=== PATIENT | female | born 1975 | race Caucasian/White ===

== ENCOUNTER → 2017-01-15 | Outpatient (CLI) | payer MEDICARE ==
[2017-01-15 14:51] LABS: Basophils # (auto) 0 uL; Basophils % (auto) 0.7 % (0.0-2.0); Eosinophils # (auto) 0.1 uL; Eosinophils % (auto) 1.9 % (0.0-7.0); Hematocrit 39.1 % (36.0-46.0); Hemoglobin 13.5 g/dL (12.2-16.2); Lymphocytes # (auto) 2.2 uL; Lymphocytes % (auto) 34.8 % (10.0-50.0); Mean Corpuscular Hemoglobin 30.1 pg (28.0-32.0); Mean Corpuscular Hgb Conc. 34.6 g/dL (32.0-36.0); Mean Corpuscular Volume 87.1 fL (80.0-100.0); Mean Platelet Volume 7.8 fL (6.9-10.8); Monocytes # (auto) 0.5 uL; Monocytes % (auto) 8.1 % (0.0-12.0); Neutrophils # (auto) 3.5 uL; Neutrophils % (auto) 54.5 % (37.0-80.0); Platelet Count (auto) 225 10^3/uL (140-450); Red Cell Distribution Width 13.7 % (11.8-14.3); White Blood Cell 6.4 10^3/uL (4.4-10.8)
[2017-01-15 15:06] LABS: Albumin 3.7 g/dL (3.4-5.0); Bilirubin, Total 0.4 mg/dL (0.2-1.0); Calcium 8.5 mg/dL (8.5-10.1); Potassium 3.8 mmol/L (3.5-5.1)
[2017-01-15 15:41] LABS: Urine Bilirubin Negative (Negative); Urine Blood Negative /uL (Negative); Urine Color Yellow (Yellow); Urine Glucose Normal (Normal); Urine Ketone Negative (Negative); Urine Mucus FEW (None Seen); Urine Nitrite Negative (Negative); Urine RBC 4 /hpf (0 - 4); Urine Squamous Epithelial Cell FEW /hpf (<5); Urine Urobilinogen Normal (Negative); Urine pH 5.5 (5.0-8.0)
== END | disposition home or self-care (01) ==
LOC: LAB 13:56
PROVIDERS: ATTEND Internal Medicine
DX: I10 Essential (primary) hypertension (principal); E55.9 Vitamin D deficiency, unspecified; E78.2 Mixed hyperlipidemia
CPT/HCPCS: 36415; 80053; 80061; 81001; 82306; 84443; 85025

== ENCOUNTER → 2017-08-31 | Outpatient (CLI) | payer MEDICARE ==
[2017-08-31 12:25] LABS: Basophils # (auto) 0 uL; Basophils % (auto) 0.7 % (0.0-2.0); Eosinophils # (auto) 0.1 uL; Eosinophils % (auto) 2.1 % (0.0-7.0); Hematocrit 39.8 % (36.0-46.0); Hemoglobin 13.6 g/dL (12.2-16.2); Lymphocytes # (auto) 1.5 uL; Lymphocytes % (auto) 31.6 % (10.0-50.0); Mean Corpuscular Hemoglobin 29.1 pg (28.0-32.0); Mean Corpuscular Hgb Conc. 34.2 g/dL (32.0-36.0); Mean Corpuscular Volume 85.3 fL (80.0-100.0); Monocytes # (auto) 0.4 uL; Monocytes % (auto) 8.6 % (0.0-12.0); Neutrophils # (auto) 2.7 uL; Nucleated Red Blood Cells % 0.1 %; Platelet Count (auto) 212 10^3/uL (140-450); Red Blood Cells 4.67 10^6/uL (4.0-5.20); Red Cell Distribution Width 13.6 % (11.8-14.3); White Blood Cell 4.7 10^3/uL (4.4-10.8)
[2017-08-31 13:41] LABS: Albumin 3.5 g/dL (3.4-5.0); Bilirubin, Total 0.6 mg/dL (0.2-1.0); Calcium 8.4 mg/dL (8.5-10.1); Total Protein 7.6 g/dL (6.4-8.2)
== END | disposition home or self-care (01) ==
LOC: LAB 12:07
PROVIDERS: ATTEND Physician Assistant
DX: I10 Essential (primary) hypertension (principal); N92.1 Excessive and frequent menstruation with irregular cycle; H90.5 Unspecified sensorineural hearing loss; E78.5 Hyperlipidemia, unspecified; R79.89 Other specified abnormal findings of blood chemistry; Z83.3 Family history of diabetes mellitus
CPT/HCPCS: 36415; 80053; 80061; 83036; 85025

== ENCOUNTER → 2017-10-12 | Outpatient (CLI) | payer MEDICARE, MEDICAID | END | disposition home or self-care (01) | LOC: XY 09:41 | PROVIDERS: ATTEND Physician Assistant | DX: I10 Essential (primary) hypertension (principal); E78.5 Hyperlipidemia, unspecified | CPT/HCPCS: 93886 ==

== ENCOUNTER → 2017-12-24 | Outpatient (CLI) | payer MEDICARE, MEDICAID ==
[2017-12-24 14:06] LABS: Hepatitis A Ab IgM Negative; Hepatitis B Core IgM Negative; Hepatitis B Surface Antigen Negative (Negative); Hepatitis C Antibody Negative (Negative)
== END | disposition home or self-care (01) ==
LOC: LAB 11:57
PROVIDERS: ATTEND Specialist
DX: Z11.3 Encounter for screening for infections with a predominantly sexual mode of transmission (principal); Z20.2 Contact with and (suspected) exposure to infections with a predominantly sexual mode of transmission
CPT/HCPCS: 36415; 80074; 86703

== ENCOUNTER 2017-12-29 22:40 | Emergency (ER) | payer MEDICARE, MEDICAID ==
[~2017-12-29] VITALS: Ht 152.4 cm; Wt 77.1 kg
[2017-12-29 22:52] VITALS: BP 138/82
[2017-12-29 23:18] LABS: Urine Amorphous Crystal FEW /hpf (None Seen); Urine Bacteria MOD /hpf (None Seen); Urine Blood TRACE /uL (Negative); Urine Hyaline Cast MANY /lpf (0 - 2); Urine Mucus FEW (None Seen); Urine Specific Gravity 1.026 (1.001-1.035); Urine WBC 22 /hpf (0 - 5)
== END 2017-12-30 04:50 | disposition left against medical advice (07) ==
LOC: EDBD 22:40 → ER 22:40 → EDSEX 22:40 → ER 12-30 04:50
DX: R10.9 Unspecified abdominal pain (principal); Z53.21 Procedure and treatment not carried out due to patient leaving prior to being seen by health care provider
CPT/HCPCS: 81001; 81025; 93005

== ENCOUNTER 2019-12-21 00:38 | Emergency (ER) | payer MEDICARE, MEDICAID ==
[~2019-12-21] VITALS: Ht 152.4 cm; Wt 64.9 kg
[2019-12-21] MEDS ORDERED: KETOROLAC TROMETH 60MG/2ML VIAL IM ONE (04:30)
[2019-12-21] MEDS ORDERED: methylPREDNISolone SOD SUCC 125 MG/2 ML VL IM ONE (04:45)
[2019-12-21 04:48] VITALS: BP 131/72
== END 2019-12-21 05:23 | disposition home or self-care (01) ==
LOC: ER 00:38
DX: N76.4 Abscess of vulva (principal); I10 Essential (primary) hypertension; E11.9 Type 2 diabetes mellitus without complications
CPT/HCPCS: 96372; 99284; J1885; J2930

== ENCOUNTER 2025-01-27 22:17 | Emergency (ER) | payer MEDICARE, MEDICAID ==
[~2025-01-27] VITALS: Ht 152.4 cm; Wt 58.6 kg
[2025-01-27 22:19] VITALS: BP 159/98; PULSE 114
--- NOTE | 2025-01-27 23:10 | ED.PDOC ---
History of Present Illness(SKN HPI Comments 49-year-old female with congenital deafness, diabetes and hypertension presented to the ER with a chief complaint of left buttock swelling for the past week. Patient reports that she experienced bump in her left buttock, which gradually increased in size and popped open but without any purulent drainage, she denies feeling hot and feverish for the past day. She denies nausea, vomiting, abdominal pain, constipation or diarrhea at this time. 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 TENDER 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: No Pertinent INCUBATOR TENDER History Family History Family History: Reviewed,noncontributory to illness, No family hx of Cancer, No family hx of DM, No family hx of Heart giovani, No family hx of HTN, No family hx ofKidney giovani, No family hx of Liver giovani, No family hx of Lung giovani, No family hx of Stroke Social History Smoker: Non-Smoker Alcohol: Denies ETOH Use Drugs: Denies Drug Use Lives In: Home Constitutional: reports: chills, fever EENTM: denies: blurred vision, double vision, ear bleeding, ear discharge, ear drainage, ear pain, ear ringing, eye pain, eye redness, hearing loss, mouth pain, mouth swelling, nasal discharge, nose bleeding, nose congestion, nose pain, photophobia, tearing, throat pain, throat swelling, voice changes, others Respiratory: denies: cough, hemoptysis, orthopnea, SOB at rest, shortness of breath, SOB with excertion, stridor, wheezing, others Cardiovascular: denies: chest pain, dizzy spells, diaphoresis, Dyspnea on exertion, edema, irregular heart beat, left arm pain, lightheadedness, palpitations, PND, syncope, others Gastrointestinal: reports: others (Left buttock swelling) Genitourinary: denies: abnormal vagina bleeding, burning, dyspareunia, dysuria, flank pain, frequency, hematuria, incontinence, pain, , vagina discharge, urgency, others Neurological: denies: dizziness, fainting, headache, left sided numbness, left sided weakness, numbness, paresthesia, pre-existing deficit, right sided numbness, right sided weakness, seizure, speech problems, tingling, tremors, weakness, others Musculoskeletal: denies: back pain, gout, joint pain, joint swelling, muscle pain, muscle stiffness, neck pain, others Integumetry: denies: bruises, change in color, change in hair/nails, dryness, laceration, lesions, lumps, rash, wounds, others Allergic/Immunocompromised: denies: Difficulty Healing, Frequent Infections, Hives, Itching, others Hematologic/Lymphatic: denies: anemia, blood clots, easy bleeding, easy bruising, swollen glands, others Endocrine: denies: excessive hunger, excessive sweating, excessive thirst, excessive urination, flushing, intolerance to cold, intolerance to heat, unexplained weight gain, unexplained weight loss, others Psychiatric: denies: anxiety, bipolar disorder, depression, hopeless, panic disorder, schizophrenia, sleepless, suicidal, others Physical Exam General Appearance: No Apparent Distress, Normal HEENT: Pharynx Normal Neck: NOT DONE Respiratory: No Accessory Muscle Use, No Respiratory Distress, Normal Breath Sounds Cardiovascular: No Edema, No JVD, No Murmur, Tachycardia Breast Exam: Deferred Gastrointestinal: No Organomegaly, Non Tender, No Pulsatile Mass, Normal Bowel Sounds, Soft Genitalia: Other (superficial folliculitis in lower abdomen, left buttock has to 2 X 2 cm erythematous, indurated swelling without fluctuance, and without drainage.) Pelvic: Deferred Rectal: Deferred Extremities: No calf tenderness, Normal capillary refill, Normal inspection, Normal range of motion, Non-tender, No pedal edema Neurologic: Alert, Normal Affect, Normal Mood, NOT DONE Cerebellar Function: NOT DONE Reflexes: NOT DONE Skin: Dry Lymphatic: NOT DONE Was a procedure done? Was a procedure done?: No Differential Diagnosis (INTG) Differential Diagnosis: Abrasion, Cellulitis, Hematoma Differential Diagnosis: Abscess X-Ray, Labs, Meds, VS Vital Signs Date Time Temp Pulse Resp B/P (MAP) Pulse Ox O2 Delivery O2 Flow Rate FiO2 01/27/25 23:48 98.7 16 98 98.7 01/27/25 22:19 99.8 114 16 159/98 98 99.8 Lab Test 01/27/25 23:22 Range/Units White Blood Count 10.9 H 4.4-10.8 10^3/uL Red Blood Count 5.27 H 4.0-5.20 10^6/uL Hemoglobin 16.0 12.2-16.2 g/dL Hematocrit 45.5 36.0-46.0 % Mean Corpuscular Volume 86.5 80.0-100.0 fL Mean Corpuscular Hemoglobin 30.4 28.0-32.0 pg Mean Corpuscular Hemoglobin Concent 35.2 32.0-36.0 g/dL Red Cell Distribution Width 13.9 11.8-14.3 % Platelet Count 267 140-450 10^3/uL Mean Platelet Volume 7.6 6.9-10.8 fL Neutrophils (%) (Auto) 74.5 37.0-80.0 % Lymphocytes (%) (Auto) 18.5 10.0-50.0 % Monocytes (%) (Auto) 5.8 0.0-12.0 % Eosinophils (%) (Auto) 0.6 0.0-7.0 % Basophils (%) (Auto) 0.6 0.0-2.0 % Neutrophils # (Auto) 8.1 1.6-8.6 10 ^3/uL Lymphocytes # (Auto) 2.0 0.4-5.4 10 ^3/uL Monocytes # (Auto) 0.6 0-1.3 10 ^3/uL Eosinophils # (Auto) 0.1 0-0.8 10 ^3/uL Basophils # (Auto) 0.1 0-0.2 10 ^3/uL Nucleated Red Blood Cells 0.1 % Sodium Level 136 136-145 mmol/L Potassium Level 3.4 L 3.5-5.1 mmol/L Chloride Level 102 98-107 mmol/L Carbon Dioxide Level 24 20-31 mmol/L Anion Gap 10 5-15 Blood Urea Nitrogen 8 L 9-23 mg/dL Creatinine 0.64 0.550-1.02 mg/dL Glomerular Filtration Rate Calc 108 >90 mL/min BUN/Creatinine Ratio 12.5 10.0-20.0 Serum Glucose 196 H 74-106 mg/dL Lactic Acid Level 1.3 0.4-2.0 mmol/L Calcium Level 9.8 8.7-10.4 mg/dL Total Bilirubin 0.6 0.2-1.0 mg/dL Aspartate Amino Transferase (AST) 20 13-40 U/L Alanine Aminotransferase (ALT) 18 7-40 U/L Alkaline Phosphatase 92 46-116 U/L Total Protein 8.4 H 5.7-8.2 g/dL Albumin 4.8 3.2-4.8 g/dL Current Medications Medications (Trade) Dose Ordered Sig/Eric Route Start Time Stop Time Status Last Admin Sodium Chloride 1,000 ml @ 1,000 mls/hr Q1H ONCE IV 01/27/25 23:15 01/28/25 00:14 DC 01/28/25 00:05 Acetaminophen (Tylenol Tablet) 1,000 mg ONCE ONCE PO 01/27/25 23:15 01/27/25 23:16 DC 01/28/25 00:18 X-Ray, Labs, Meds, VS Comment Exam: US LEFT LOWER EXTREMITY ULTRASOUN Clinical History: left buttock swelling, r/o abcess Comparison: None Technique: Targeted sonographic evaluation of the soft tissues of the right gluteal region was obtained utilizing grayscale and color Doppler imaging. Findings/Impression: There is no evidence for drainable collection. There is no evidence for solid or cystic mass in the site. No vascular abnormalities identified at this site. Superficial soft tissue edema noted. Time of 1ST Reevaluation: 01:00 Reevaluation 1ST: Improved Consultation: PCP Patient Education/Counseling: Diagnosis, Treatment Family Education/Counseling: Diagnosis, Treatment SEPSIS Sepsis Screen Date sepsis recognized/suspect: Jan 27, 2025 Time Sepsis recognized/suspect: 2218 Recent Procedure: No On Antibiotic Therapy: No Respiratory Rate >20: No Heart Rate >90: Yes Temp<36 C (96.8 F) or >38.3 C: No SBP <90 or MAP <65 mmHG: No New Acute Mental Status Change: No Is the patient on CPAP, BIPAP,: No Physician Orders Urinalysis (01/27/25 23:03) Left Lower Extremity Ultrasoun (01/27/25 23:09) Blood Culture (01/27/25 23:18) Potassium Effervesent Tab (Klor-Con/Ef) (01/28/25 01:00) Clindamycin Capsule (Cleocin Capsule) (01/28/25 01:00) Vital Signs Date Time Temp Pulse Resp B/P (MAP) Pulse Ox O2 Delivery O2 Flow Rate FiO2 01/27/25 23:48 98.7 16 98 98.7 01/27/25 22:19 99.8 114 16 159/98 98 99.8 Laboratory Tests Test 01/27/25 23:22 Lactic Acid Level 1.3 mmol/L (0.4-2.0) White Blood Count 10.9 10^3/uL (4.4-10.8) H Medications Medications Dose Ordered Sig/Eric Route Start Time Stop Time Status Last Admin Dose Admin Acetaminophen 1,000 mg ONCE ONCE PO 01/27/25 23:15 01/27/25 23:16 DC 01/28/25 00:18 Sodium Chloride 1,000 ml @ 1,000 mls/hr Q1H ONCE IV 01/27/25 23:15 01/28/25 00:14 DC 01/28/25 00:05 Departure 1 Departure Time of Disposition: 01:00 Impression: Primary Impression: Cellulitis of left buttock Additional Impression: Folliculitis Disposition: HOME / SELF CARE / HOMELESS Condition: Stable e-Prescriptions Bacitracin (Bacitracin Oint) 1 Applic Ap 1 APPLIC TOP BIDPRN PRN for 5 Days, #10 APPLIC Prov: DANIELLE MCCURDY RESIDENT 01/28/25 Clindamycin Hcl (Clindamycin Hcl) 300 Mg Cap 300 MG PO QID for 5 Days, #20 CAP Prov: DANIELLE MCCURDY RESIDENT 01/28/25 Discharged With: Self Comments 1 L IV NS administered, clindamycin 300 mg p.o. given. Ultrasound shows superficial swelling, there is no evidence for solid or cystic mass in the site. No vascular abnormalities identified at this site. Superficial soft tissue edema noted. Tablet clindamycin 300 mg p.o. 4 times daily for 5 days. Follow up with primary care physician within the next 3 days Bacitracin ointment b.i.d. p.r.n. Please go to the ER or call your doctor if you noticed redness swelling warmth or pus from the bite, fever or chills, numbness, trouble moving fingers or joints Attached is the ultrasound report, Exam: US LEFT LOWER EXTREMITY ULTRASOUN Clinical History: left buttock swelling, r/o abcess Comparison: None Technique: Targeted sonographic evaluation of the soft tissues of the right gluteal region was obtained utilizing grayscale and color Doppler imaging. Findings/Impression: There is no evidence for drainable collection. There is no evidence for solid or cystic mass in the site. No vascular abnormalities identified at this site. Superficial soft tissue edema noted. Critical Care Note Critical Care Time?: No Stability Stability form required: DANIELLE Cid RESIDENT Jan 27, 2025 23:10
[2025-01-27 23:38] LABS: Hematocrit 45.5 % (36.0-46.0); Hemoglobin 16.0 g/dL (12.2-16.2); Mean Corpuscular Hemoglobin 30.4 pg (28.0-32.0); Mean Corpuscular Volume 86.5 fL (80.0-100.0); Nucleated Red Blood Cells % 0.1 %
[2025-01-27 23:48] VITALS: RESP 16; TEMP 98.7; O2SAT 98
[2025-01-27 23:52] LABS: Alanine Aminotransferase 18 U/L (7-40); Albumin 4.8 g/dL (3.2-4.8); Alkaline Phosphatase 92 U/L (46-116); Anion Gap 10 (5-15); BUN/Creatinine Ratio 12.5 (10.0-20.0); Calcium 9.8 mg/dL (8.7-10.4); Carbon Dioxide 24 mmol/L (20-31); Chloride 102 mmol/L (98-107); Sodium 136 mmol/L (136-145)
[2025-01-27 23:53] LABS: Bilirubin, Total 0.6 mg/dL (0.2-1.0); Blood Urea Nitrogen 8 mg/dL (9-23); Glucose 196 mg/dL (74-106); Potassium 3.4 mmol/L (3.5-5.1); Total Protein 8.4 g/dL (5.7-8.2)
[2025-01-28] MEDS: SODIUM CHLORIDE 0.9% 1,000 ML IV ONE (00:05)
[2025-01-28] MEDS: ACETAMINOPHEN 325 MG TAB PO ONE (00:18)
--- NOTE | 2025-01-28 00:19 | DVH ---
Exam: US LEFT LOWER EXTREMITY ULTRASOUN Clinical History: left buttock swelling, r/o abcess Comparison: None Technique: Targeted sonographic evaluation of the soft tissues of the right gluteal region was obtained utilizin g grayscale and color Doppler imaging. Findings/Impression: There is no evidence for drainable collection. There is no evidence for solid or cystic mass in the site. No vascular abnormalities identified at this site. Superficial soft tissue edema noted.
[2025-01-28] MEDS ORDERED: CLIN1CAP70 PO (00:52)
[2025-01-28] MEDS ORDERED: BAC09TP TOP (00:53)
[2025-01-28] MEDS: BACITRACIN TOP OINT 1 UD PKG TOP ONE (01:15)
[2025-01-28] MEDS: CLINDAMYCIN HCL 150 MG CAP PO ONE (01:16)
[2025-01-28] MEDS: POTASSIUM EFFERVESENT TAB 25 MEQ PO ONE (01:16)
== END 2025-01-28 01:22 | disposition home or self-care (01) ==
LOC: ER 22:17
DX: L03.317 Cellulitis of buttock (principal); L73.9 Follicular disorder, unspecified; E11.9 Type 2 diabetes mellitus without complications; I10 Essential (primary) hypertension; E86.0 Dehydration
CPT/HCPCS: 36415; 80053; 83605; 85025; 87040; 93926; 96360; 99284; J7030